=== PATIENT | female | born 1990 | race Hispanic/Latino ===

== ENCOUNTER 2018-05-14 08:41 | Emergency (ER) | payer MEDICAID, OTHER ==
[2018-05-14 09:14] LABS: Bilirubin Negative (Negative); Blood, Urine Negative (Negative); Clarity CLEAR (Clear); Glucose, Urine (Dipstick) Negative (Negative); Leukocyte Negative (Negative); Nitrite Negative (Negative); Protein, Urine (Dipstick) Negative (Neg-Trace); Specific Gravity, Urine 1.021 (1.002-1.036); Urobilinogen 0.2 mg/dL (0.2-1.0); pH, Urine 6.5 (5.0-9.0)
[2018-05-14 10:05] LABS: #Eosinphils 0.1 thou/uL (0.0-0.7); #Lymphocytes 1.4 thou/uL (1.20-3.40); #Monocytes 0.4 thou/uL (0.11-0.59); #Neutrophils 5.1 thou/uL (1.40-6.50); %Basophils 0.4 % (0.0-1.0); %Eosinophils 0.9 % (0.0-10.0); %Lymphocytes 20.4 % (21.0-51.0); %Monocytes 5.1 % (0.0-10.0); %Neutrophils 73.2 % (42.0-75.0); Hemoglobin 14.5 g/dL (12.0-16.0); Mean Corpuscular HGB CONC 32.8 g/dL (32.0-36.0); Mean Corpuscular Hemoglobin 30.8 pg (27.0-31.0); Mean Platelet Volume 6.6 fL (7.4-10.4); Platelet Count 318 thou/uL (130-400); RBC Distribution Width 11.6 % (11.5-14.5); Red Blood Cell (RBC) Count 4.72 mill/uL (4.20-5.40); White Blood Cell (WBC) Count 6.9 thou/uL (4.8-10.8)
[2018-05-14] MEDS ORDERED: Ondansetron ODT 8 MG TAB ONE (10:13)
[2018-05-14 10:24] LABS: ALT (SGPT) 30 U/L (8-55); AST (SGOT) 25 U/L (5-34); Albumin 4.5 g/dL (3.5-5.0); Alkaline Phosphatase 64 U/L (40-150); Anion Gap 16 mmol/L (10-20); BUN (Urea Nitrogen) 7 mg/dL (7.0-18.7); Bilirubin, Total 0.4 mg/dL (0.2-1.2); Calc. Creatinine Clearance 0 mL/min (70-130); Calcium 9.6 mg/dL (7.8-10.44); Carbon Dioxide 18 mmol/L (22-29); Chloride 105 mmol/L (98-107); Estimated GFR-MDRD Greater than 90; Globulin 3.7 g/dL (2.4-3.5); Glucose 87 mg/dL (70-105); Protein, Total 8.2 g/dL (6.0-8.3); Sodium 135 mmol/L (136-145)
--- NOTE | 2018-05-14 11:32 | ULT ---
LIMITED OB ULTRASOUND: DATE: 05/14/2018. PROVIDED CLINICAL HISTORY: Abdominal pain. FINDINGS: Uterus measures about 10.3 x 6.3 x 7.5 cm and demonstrates a single live intrauterine gestation, 8 we eks 1 day by crown-rump length. heart rate of 158 b.p.m. is documented. There is no evidence for perigestational hemorrhage. The right and left ovaries appear sonographically unremarkable with color Doppler and spectral analys is demonstrating flow. No significant free pelvic fluid is evident. IMPRESSION: Single live intrauterine gestation as above. POS: [facility]
== END 2018-05-14 12:45 | disposition home or self-care (01) ==
LOC: ERS 08:41
DX: O99.89 Other specified diseases and conditions complicating pregnancy, childbirth and the puerperium (principal); R10.9 Unspecified abdominal pain; O21.9 Vomiting of pregnancy, unspecified; Z3A.01 Less than 8 weeks gestation of pregnancy
CPT/HCPCS: 76815; 80053; 81003; 84702; 85025; 86900; 86901; 87480; 87491; 87510; 87591; 87660; 96360; 96361

== ENCOUNTER 2018-06-18 09:13 | Emergency (ER) | payer OTHER, SELFPAY ==
[2018-06-18 09:50] LABS: #Eosinphils 0.1 thou/uL (0.0-0.7); #Lymphocytes 1.2 thou/uL (1.20-3.40); #Monocytes 0.4 thou/uL (0.11-0.59); #Neutrophils 4.6 thou/uL (1.40-6.50); %Basophils 0.6 % (0.0-1.0); %Eosinophils 0.9 % (0.0-10.0); %Lymphocytes 19.1 % (21.0-51.0); %Monocytes 6.1 % (0.0-10.0); %Neutrophils 73.3 % (42.0-75.0); Hemoglobin 13.6 g/dL (12.0-16.0); Mean Corpuscular HGB CONC 33.8 g/dL (32.0-36.0); Mean Corpuscular Volume 94.5 fL (78.0-98.0); Mean Platelet Volume 7.1 fL (7.4-10.4); Platelet Count 206 thou/uL (130-400); RBC Distribution Width 11.6 % (11.5-14.5); Red Blood Cell (RBC) Count 4.25 mill/uL (4.20-5.40); White Blood Cell (WBC) Count 6.3 thou/uL (4.8-10.8)
[2018-06-18 10:06] LABS: ALT (SGPT) 19 U/L (8-55); AST (SGOT) 20 U/L (5-34); Albumin 3.8 g/dL (3.5-5.0); Alkaline Phosphatase 49 U/L (40-150); Anion Gap 14 mmol/L (10-20); BUN (Urea Nitrogen) 9 mg/dL (7.0-18.7); Bilirubin, Total 0.3 mg/dL (0.2-1.2); Calc. Creatinine Clearance 0 mL/min (70-130); Calcium 9.2 mg/dL (7.8-10.44); Carbon Dioxide 18 mmol/L (22-29); Chloride 108 mmol/L (98-107); Estimated GFR-MDRD Greater than 90; Glucose 87 mg/dL (70-105); Lipase 10 U/L (8-78); Potassium 3.9 mmol/L (3.5-5.1); Protein, Total 6.8 g/dL (6.0-8.3); Sodium 136 mmol/L (136-145)
== END 2018-06-18 10:21 | disposition home or self-care (01) ==
LOC: ERS 09:13 → MERGE 09:13 → ERS 10:21
DX: O99.89 Other specified diseases and conditions complicating pregnancy, childbirth and the puerperium (principal); R10.30 Lower abdominal pain, unspecified; Z3A.14 14 weeks gestation of pregnancy
CPT/HCPCS: 36415; 80053; 83690; 85025; 94760

== ENCOUNTER 2018-07-29 09:18 | Outpatient (CLI) | payer OTHER ==
--- NOTE | 2018-07-29 10:05 | ULT ---
EXAM: OB ultrasound COMPARISON: None HISTORY: female. Evaluate size, dates, and anatomy. TECHNIQUE: Multiplanar grayscale and color Doppler images were obtained in a transabdominal ult rasound. FINDINGS: There is a single live intrauterine with heart rate of 155 bpm. A survey wa s performed which is unremarkable. The heart and face were not well visualized. The head, intracranial structures, stomach, kidneys, umbilical cord, umbilical cord insertion, spine, and extr emities were evaluated and were unremarkable. Estimated weight is 303 g. Average age of the fetus based off today's examination is 19 weeks 6 days. BPD 4.64 cm -- 20 weeks 1 day HC 16.89 cm -- 19 weeks 4 days AC 14.22 cm -- 19 weeks 5 days FL 3.11 cm -- 19 weeks 5 days The placenta is anterior in location without focal abnormality. Amniotic fluid volume is subjectivel y within normal limits. There is no evidence of placenta previa. IMPRESSION: Single live intrauterine with estimated age of 19 weeks 6 days.
== END 2018-07-29 09:19 | disposition home or self-care (01) ==
LOC: BICULT 09:18
PROVIDERS: ATTEND Family Medicine
DX: O09.92 Supervision of high risk pregnancy, unspecified, second trimester (principal); Z3A.19 19 weeks gestation of pregnancy
CPT/HCPCS: 76805

== ENCOUNTER 2018-10-23 06:52 | Inpatient (IN) | payer OTHER, SELFPAY ==
[2018-10-23 07:50] VITALS: BMI 39.0
[2018-10-23] MEDS ORDERED: hydrALAZINE 20 MG/ML VIAL SLOW IVP PRN ×2 (08:48→08:50)
[2018-10-23] MEDS ORDERED: Ondansetron PF 4 MG/2 ML Vial IVP PRN (08:50)
[2018-10-23] MEDS ORDERED: Promethazine HCl 25 MG/ML VIAL IM PRN (08:50)
[2018-10-23] MEDS ORDERED: Lactated Ringer's 1,000 ML IV SCH (09:00)
[2018-10-23] MEDS ORDERED: Acetaminophen 500 MG TAB PO SCH (09:00)
[2018-10-23 09:25] LABS: Hemoglobin 12.7 g/dL (12.0-16.0); Mean Corpuscular Hemoglobin 31.5 pg (27.0-31.0); Mean Corpuscular Volume 92.6 fL (78.0-98.0); Mean Platelet Volume 6.7 fL (7.4-10.4); Platelet Count 223 thou/uL (130-400); RBC Distribution Width 11.6 % (11.5-14.5); Red Blood Cell (RBC) Count 4.02 mill/uL (4.20-5.40); White Blood Cell (WBC) Count 9.2 thou/uL (4.8-10.8)
[2018-10-23] MEDS ORDERED: Lidocaine 1% (PF) 30 ML VIAL ONE (09:42)
[2018-10-23 09:52] LABS: ALT (SGPT) 16 U/L (8-55); AST (SGOT) 15 U/L (5-34); Albumin 3.4 g/dL (3.5-5.0); Alkaline Phosphatase 89 U/L (40-150); Anion Gap 10 mmol/L (10-20); BUN (Urea Nitrogen) 5 mg/dL (7.0-18.7); Bilirubin, Total 0.5 mg/dL (0.2-1.2); Calc. Creatinine Clearance 205 mL/min (70-130); Calcium 8.7 mg/dL (7.8-10.44); Carbon Dioxide 25 mmol/L (22-29); Chloride 107 mmol/L (98-107); Estimated GFR-MDRD Greater than 90; Globulin 2.5 g/dL (2.4-3.5); Glucose 94 mg/dL (70-105); Potassium 3.8 mmol/L (3.5-5.1); Protein, Total 5.9 g/dL (6.0-8.3); Sodium 138 mmol/L (136-145)
--- NOTE | 2018-10-26 07:38 | SS ---
DATE OF ADMISSION: 10/23/2018 DATE OF DISCHARGE: 10/23/2018 CHIEF COMPLAINT: Abdominal pain. HISTORY OF PRESENT ILLNESS: The patient is a 27-year-old, G2, P1, female with an intrauterine at 33 weeks and a day, who presented with onset of acute abdominal pain in the right lower quadrant. She reports that it began early this morning prior to presentation, primarily on the right lower side. She denies the pain as contraction pain. Reports that there is some worsening with activity and movement. She denies nausea or vomiting. She denies fever. She denies loss of appetite. She denies diarrhea or constipation. She describes the pain as colicky. The patient denies any sick contacts. PAST MEDICAL HISTORY: Noncontributory. PAST SURGICAL HISTORY: The patient has had 1 prior . ALLERGIES: NO KNOWN DRUG ALLERGIES. SOCIAL HISTORY: Denies drug, alcohol, or tobacco. MEDICATIONS: vitamins. REVIEW OF SYSTEMS: Per HPI. PHYSICAL EXAMINATION: VITAL SIGNS: Blood pressure 103/65, heart rate of 70, saturating 98% on room air, respiratory rate 18, and temperature 98.7. GENERAL: She appears to be in some distress with pain in her right lower quadrant. She is otherwise alert, oriented, cooperative, and pleasant to interact with. HEAD: Normocephalic and atraumatic. LUNGS: Clear to auscultation bilaterally. HEART: Has regular rate and rhythm. ABDOMEN: Tender on the right side. Seems to be in the mid abdominal region on the right side down into her pelvis. She does have some referred pain to the right with palpation on the left. She does not have any peritoneal signs or guarding. EXTREMITIES: Nontender. Nonedematous. : Has been deferred. heart tracing shows the fetus in the 130s with moderate long-term variability, positive 15 x 15 accelerations, no decelerations. Tocometer is without any evidence of contractions. LABORATORY DATA: CBC was drawn. White count 9.2, hemoglobin 12.7, hematocrit 37.2, and platelets of 223,000. ASSESSMENT AND PLAN: The patient is a 27-year-old female with new onset right-sided pain. Some of her history is consistent with ligament pain and ; however, given the nature of her pain and on exam, there is some concern that this could possibly be an early appendicitis. However, other clinical symptoms point away from that as the patient has not had fever, nausea, vomiting, or lack of appetite. Plan at this time is to place the patient into observation for serial exams. We will get an ultrasound for attempt to evaluate the appendix. If the patient begins to show worsening signs of pointing more toward appendicitis, we will consider consultation with General Surgery. Fetus has a reactive NST and category 1 tracing. There are no other obstetric concerns at this time. ADDENDUM: The patient shortly after being admitted to observation called out and reported that her pain is completely resolved. She reports that ambulating seemed to help and things now that it must have been gas pocket or something intestinal that has gotten better. On physical exam, the patient's abdomen is completely benign, again nontender to light or deep palpation, and very much resolved from previous exam. Given this spontaneous resolution, the patient is being discharged to home. She has instructions to return, should her pain return, worsen, as she has fever or other concerning signs. The patient otherwise is to follow up with her primary OB, Dr. Quintero, as scheduled. Job ID: [id number]
== END 2018-10-23 10:21 | disposition home health service (06) | DRG 776 ==
LOC: L&D/OP 06:52 → L&D 09:44
PROVIDERS: ADMIT Obstetrics & Gynecology; ATTEND Family Medicine
DX: O99.89 Other specified diseases and conditions complicating pregnancy, childbirth and the puerperium (principal); Z3A.33 33 weeks gestation of pregnancy; R10.9 Unspecified abdominal pain
CPT/HCPCS: 80053; 85027; 99284; J2001

== ENCOUNTER 2018-12-07 00:44 | Day surgery (SDC) | payer OTHER ==
[2018-12-07 01:07] VITALS: BMI 37.8
[2018-12-07] MEDS ORDERED: hydrALAZINE 20 MG/ML VIAL SLOW IVP PRN (01:36)
[2018-12-07] MEDS ORDERED: Promethazine HCl 25 MG/ML VIAL IM SCH (01:45)
[2018-12-07] MEDS ORDERED: Morphine 10 MG/ML VIAL SLOW IVP SCH (01:45)
--- NOTE | 2018-12-07 02:22 | PRG ---
DATE OF SERVICE: 12/07/2018 PRIMARY OB: Guy Quintero MD CHIEF COMPLAINT: Abdominal pain. HISTORY OF PRESENT ILLNESS: The patient is a 28-year-old G2, P1 female with an intrauterine at 39 weeks and 2 days, presenting with contractions that are about every 7 minutes since about 4 o'clock this afternoon. The patient reports that the contractions become more painful and more unbearable. She denies any leakage of fluid or vaginal bleeding. She is scheduled for repeat tomorrow morning at 9 o'clock. The patient denies any recent falls. She denies fever, cough, headache, chest pain, shortness of breath, nausea, vomiting, diarrhea, constipation, any new rashes, hip problems, knee problems, muscle weakness, again vaginal bleeding or leakage of fluid or urinary urgency or frequency. PAST MEDICAL HISTORY: Negative. PAST SURGICAL HISTORY: One prior . ALLERGIES: NO KNOWN DRUG ALLERGIES. SOCIAL HISTORY: Denies drug, alcohol, or tobacco use. MEDICATIONS: vitamins. REVIEW OF SYSTEMS: Per HPI. OB LABS: Unavailable at the time of dictation. PHYSICAL EXAMINATION: VITAL SIGNS: Blood pressure 129/85, heart rate is 77, O2 saturation 98%, temperature 98.2. GENERAL: She is alert and oriented. Cooperative. She appears to be in some distress with contractions. LUNGS: Clear to auscultation bilaterally. HEART: Has regular rate and rhythm. ABDOMEN: Gravid, soft at time of evaluation. EXTREMITIES: Nontender and nonedematous. : Per nursing staff, she has one thick and high. heart tracing performed for abdominal pain and notes a heart tracing in the 130s with moderate long-term variability, positive 15 x 15 accelerations, and no decelerations. Contractions appear to be every 2 to 3 minutes. ASSESSMENT AND PLAN: The patient is a 28-year-old G2, P1 female with an intrauterine at 39 weeks and 2 days, here to rule out labor. The patient is having painful contractions at this time. She has been given 6 mg of morphine IV and 12.5 mg of Phenergan for pain control and will be given sometime here to see how these contractions develop. Should she continue to persist with painful contractions or makes any cervical change, will be contacting Dr. Quintero to advice him of her presence and will be seeing about proceeding for a scheduled repeat . Fetus has a category 1 tracing. Job ID: [id number]
== END 2018-12-07 04:51 | disposition home or self-care (01) ==
LOC: L&D/OP 00:44
PROVIDERS: ATTEND Family Medicine
DX: O47.1 False labor at or after 37 completed weeks of gestation (principal); Z3A.39 39 weeks gestation of pregnancy
CPT/HCPCS: 96360; 96375; 99282; J2270; J2550

== ENCOUNTER 2018-12-08 09:45 | Inpatient (IN) | payer MEDICAID, OTHER, SELFPAY ==
[2018-12-08] MEDS ORDERED: Azithromycin 500 MG in Sodium Chloride 0.9% 250 ML 250 ML IVPB SCH (10:15)
[2018-12-08] MEDS ORDERED: CEFAZOLIN 2 GM in Premix Bag 1 BAG IVPB SCH (10:15)
[2018-12-08] MEDS ORDERED: Bicitra 30 ML UDCUP PO SCH (10:15)
[2018-12-08] MEDS ORDERED: Promethazine HCl 25 MG/ML VIAL IM PRN ×2 (10:15→15:37)
[2018-12-08] MEDS ORDERED: hydrALAZINE 20 MG/ML VIAL SLOW IVP PRN ×2 (10:15→17:15)
[2018-12-08] MEDS ORDERED: Ondansetron PF 4 MG/2 ML Vial IVP PRN ×3 (10:15→17:15)
[2018-12-08 10:21] VITALS: BMI 34.4
[2018-12-08] MEDS: Lactated Ringer's 1,000 ML IV SCH ×3 (10:45→19:55)
[2018-12-08 10:54] LABS: Hemoglobin 13.3 g/dL (12.0-16.0); Mean Corpuscular HGB CONC 35.5 g/dL (32.0-36.0); Mean Corpuscular Hemoglobin 31.9 pg (27.0-31.0); Mean Corpuscular Volume 89.7 fL (78.0-98.0); Mean Platelet Volume 6.8 fL (7.4-10.4); Platelet Count 248 thou/uL (130-400); RBC Distribution Width 11.8 % (11.5-14.5); Red Blood Cell (RBC) Count 4.17 mill/uL (4.20-5.40); White Blood Cell (WBC) Count 6.5 thou/uL (4.8-10.8)
[2018-12-08 11:33] LABS: HBSAg Index 0.19 S/CO (0-0.99); Hep B Surf Ag Non-Reactive S/CO (NonReactive); Syphilis Antibody Nonreactive (Nonreactive); Syphilis Antibody Index 0.03 S/CO (<1.00 Non-Reactive)
[2018-12-08] MEDS ORDERED: Oxytocin 10 UNITS/ML VIAL ONE ×2 (12:47→14:05)
[2018-12-08] MEDS ORDERED: MORPHINE 5 MG/10 ML PF VIAL ONE (12:47)
[2018-12-08] MEDS ORDERED: Ondansetron PF 4 MG/2 ML Vial ONE ×3 (12:56→17:12)
[2018-12-08] MEDS ORDERED: CEFAZOLIN 1 GM VIAL ONE (13:23)
[2018-12-08] MEDS ORDERED: Midazolam HCl 2 mg/2 ml Vial ONE (13:35)
[2018-12-08] MEDS ORDERED: Fentanyl 100 MCG/2 ML VIAL ONE (13:49)
[2018-12-08] MEDS ORDERED: Ketorolac Tromethamine 30 MG/ML VIAL ONE ×2 (14:11→17:12)
[2018-12-08] MEDS ORDERED: Misoprostol 200 MCG TAB ONE (14:15)
[2018-12-08] MEDS ORDERED: Misoprostol 200 MCG TAB PR SCH (15:15)
[2018-12-08] MEDS ORDERED: Ondansetron HCl/PF 4 MG/2 ML Vial IVP PRN (15:37)
[2018-12-08] MEDS ORDERED: Promethazine HCl 25 MG SUPP PR PRN (15:37)
[2018-12-08] MEDS ORDERED: HYDROmorphone 2 MG/ML VIAL SLOW IVP PRN (15:37)
[2018-12-08] MEDS ORDERED: Naloxone HCl 0.4 mg/ml Vial IV PRN (15:37)
[2018-12-08] MEDS ORDERED: diphenhydrAMINE 50 MG/ML VIAL IVP PRN (15:37)
[2018-12-08] MEDS ORDERED: L&D-Morphine 4 MG/ML VIAL SLOW IVP PRN (15:37)
[2018-12-08] MEDS ORDERED: Meperidine HCl/PF 25 MG/ML VIAL SLOW IVP PRN (15:37)
[2018-12-08] MEDS ORDERED: Naloxone HCl 0.4 mg/ml Vial IVP PRN ×2 (15:37)
[2018-12-08] MEDS ORDERED: Meperidine HCl/PF 25 MG/ML VIAL ONE (15:41)
[2018-12-08] MEDS ORDERED: Ketorolac Tromethamine 30 MG/ML VIAL IVP SCH (15:45)
[2018-12-08] MEDS ORDERED: Communication Order-Pharmacy FS SCH (15:45)
[2018-12-08] MEDS ORDERED: Lanolin Ointment 7 GM TUBE TOP PRN (17:15)
[2018-12-08] MEDS ORDERED: Bisacodyl 10 MG SUPP PR PRN (17:15)
[2018-12-08] MEDS ORDERED: NS / Oxytocin 40 units/1000ml 1,000 ML IV SCH (17:15)
[2018-12-08] MEDS ORDERED: Adacel (T-DAP) 0.5 ML SYRINGE IM ONE (17:15)
[2018-12-08] MEDS ORDERED: diphenhydrAMINE 25 MG CAP PO PRN (17:15)
[2018-12-08] MEDS ORDERED: HYDROcodone/Acetaminophen 5/325 mg Tablet PO PRN (18:53)
[2018-12-08] MEDS ORDERED: Ketorolac Tromethamine 30 MG/ML VIAL IVP PRN (19:00)
[2018-12-08] MEDS: Ketorolac Tromethamine 30 MG/ML VIAL IVP PRN (19:07)
--- NOTE | 2018-12-08 20:16 | OP ---
DATE OF PROCEDURE: 12/08/2018 LOCATION: [place], [place]. PROCEDURE PERFORMED: Repeat low-transverse section. PREOPERATIVE DIAGNOSES: 1. Term intrauterine . 2. Previous section. 3. Obesity. POSTOPERATIVE DIAGNOSES: 1. Term intrauterine . 2. Previous section. 3. Obesity. ANESTHESIA: Spinal. INDICATIONS FOR PROCEDURE: The patient is a 28-year-old, G2, P1 female at 39 weeks' gestation, who presents for repeat scheduled section. DESCRIPTION OF PROCEDURE: After risks, benefits, and alternatives were explained to the patient, she gave informed consent. Preoperative antibiotics included 2 g of Ancef IV as well as 500 mg of azithromycin. The patient was taken to the operating room and spinal anesthesia was initiated. She was placed in the supine position with a left tilt, prepped and draped in usual sterile fashion. A Pfannenstiel incision was made with a scalpel and carried down to the level of fascia, which was sharply nicked. The fascial cut was extended bilaterally with Vargas scissors. The inferior and superior edges of the cut fascial edges were elevated with Silvia clamps, and the underlying rectus muscles were sharply and bluntly dissected free. The recti were divided digitally and retracted manually. The peritoneum was entered bluntly and retracted manually. Bladder blade was placed. At this point, a low transverse score was made with a scalpel and the uterus was entered in midline with the scalpel. Clear fluid was seen. The hysterotomy was extended manually. The was noted to be vertex and easily delivered by fundal pressure. Mouth and nares were bulb suctioned. Cord clamped and cut, and grossly normal male infant was handed to the waiting nurse. Cord blood was obtained. The placenta was manually extracted, found to be intact with 3-vessel cord and discarded. Uterus was then externalized and endometrium was curetted with a dry lap. The bladder blade was replaced and the uterus was then closed with a running locking 0 Vicryl suture. Following this, hemostasis was noted. There was noted to be a superior adhesion from the omentum to the midline superior aspect of the uterus , which was clamped with two Leslie clamps and cut. Following this, each edge of the band was ligated with a 0 Vicryl suture. Hemostasis was again noted. Additionally, there was noted to be a left superior adhesion from the small bowel to the left superolateral aspect of the uterus, which was left in place. At this point, the abdomen was irrigated with saline and suctioned free of clots. The uterus was then internalized and the hysterotomy was again noted to be hemostatic. The fascia was closed with a running nonlocking 0 PDS suture. Subcutaneous tissue was irrigated and there were no bleeders. The subcutaneous tissue was approximated with three simple interrupted 3-0 Vicryl sutures. The skin was then approximated with ann and pressure dressing was placed. All counts were correct. The patient tolerated the procedure well and was taken to the recovery room in stable condition. Bilateral tubes and ovaries grossly normal. TIME OF DELIVERY: 1327 hours. ESTIMATED BLOOD LOSS: 800 mL. COMPLICATIONS: None. SPECIMENS: Cord blood sent to the lab for blood type. FINDINGS: 1. Grossly normal male infant with Apgars of 8 and 9. 2. Grossly normal placenta with 3-vessel cord discarded. DRAINS: Meade to gravity draining clear urine. Job ID: [id number] [facility]
[2018-12-09] MEDS: Docusate Calcium (SURFAK) 240 MG CAP PO SCH ×3 (00:49→21:13)
[2018-12-09] MEDS: Ferrous Sulfate 325 MG TAB PO SCH ×3 (00:50→23:54)
[2018-12-09] MEDS: Ketorolac Tromethamine 30 MG/ML VIAL IVP PRN (03:25)
[2018-12-09] MEDS ORDERED: Meperidine HCl/PF 25 MG/ML VIAL IM PRN (03:45)
[2018-12-09] MEDS ORDERED: HYDROcodone/Acetaminophen 5/325 mg Tablet PO PRN (03:45)
[2018-12-09 05:37] LABS: Hemoglobin 10.4 g/dL (12.0-16.0); Mean Corpuscular HGB CONC 35.3 g/dL (32.0-36.0); Mean Corpuscular Hemoglobin 32.1 pg (27.0-31.0); Mean Corpuscular Volume 90.9 fL (78.0-98.0); Mean Platelet Volume 7.1 fL (7.4-10.4); Platelet Count 178 thou/uL (130-400); RBC Distribution Width 11.8 % (11.5-14.5); Red Blood Cell (RBC) Count 3.22 mill/uL (4.20-5.40); White Blood Cell (WBC) Count 7.1 thou/uL (4.8-10.8)
[2018-12-09] MEDS: HYDROcodone/Acetaminophen 5/325 mg Tablet PO PRN ×2 (10:03→21:13)
[2018-12-09] MEDS: Prenatal Vitamin 1 TAB PO SCH (10:03)
[2018-12-09] MEDS: Ibuprofen 800 MG TAB PO SCH ×2 (14:30→21:13)
[2018-12-10] MEDS: Ibuprofen 800 MG TAB PO SCH ×3 (06:32→21:28)
[2018-12-10] MEDS: Simethicone Chewable 80 MG TAB PO PRN ×2 (06:39→14:10)
[2018-12-10] MEDS: Ferrous Sulfate 325 MG TAB PO SCH (07:39)
[2018-12-10] MEDS: Prenatal Vitamin 1 TAB PO SCH (09:22)
[2018-12-10] MEDS: Docusate Calcium (SURFAK) 240 MG CAP PO SCH ×2 (09:22→21:28)
[2018-12-10] MEDS: HYDROcodone/Acetaminophen 5/325 mg Tablet PO PRN ×2 (14:08→21:30)
[2018-12-11] MEDS: Ferrous Sulfate 325 MG TAB PO SCH ×2 (01:14→14:16)
[2018-12-11] MEDS: Ibuprofen 800 MG TAB PO SCH ×2 (06:05→13:52)
[2018-12-11 08:35] VITALS: BP 102/63; TEMP 98.3
[2018-12-11] MEDS: Docusate Calcium (SURFAK) 240 MG CAP PO SCH (08:51)
[2018-12-11] MEDS: Prenatal Vitamin 1 TAB PO SCH (08:51)
[2018-12-11] MEDS: HYDROcodone/Acetaminophen 5/325 mg Tablet PO PRN ×2 (14:13→18:31)
[2018-12-11] MEDS: Simethicone Chewable 80 MG TAB PO PRN (14:23)
== END 2018-12-11 19:00 | disposition home or self-care (01) | DRG 788 ==
LOC: L&D 09:45 → 3SW 16:49
PROVIDERS: ADMIT Family Medicine; ATTEND Family Medicine
PROC: 10D00Z1 Extraction of Products of Conception, Low, Open Approach (ICD-10-PCS; principal; 2018-12-08)
DX: O34.211 Maternal care for low transverse scar from previous cesarean delivery (principal); O99.214 Obesity complicating childbirth; E66.9 Obesity, unspecified; Z3A.39 39 weeks gestation of pregnancy; Z37.0 Single live birth
CPT/HCPCS: 36415; 51702; 85027; 86780; 86850; 86900; 86901; 87340; J0456; J0690; J1885; J2175; J2250; J2274; J2405; J2590; J3010; J7050